=== PATIENT | male | born 1975 | race Caucasian/White ===

== ENCOUNTER 2016-05-23 21:01 | Emergency (ER) | payer OTHER ==
[2016-05-23 21:06] VITALS: BP 146/86; PULSE 84; TEMP 97.9; BMI 33.0
[2016-05-23] MEDS ORDERED: IBUPROFEN 400 MG TABLET (FP) PO ONE (21:49)
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
== END 2016-05-23 22:32 | disposition home or self-care (01) ==
LOC: JER 21:01
DX: H92.03 Otalgia, bilateral (principal); Y35.091A Legal intervention involving other firearm discharge, law enforcement official injured, initial encounter; Y93.89 Activity, other specified; Y92.89 Other specified places as the place of occurrence of the external cause; Y99.0 Civilian activity done for income or pay
CPT/HCPCS: 99281-25